=== PATIENT | female | born 1980 | race Caucasian/White ===

== ENCOUNTER 2017-09-26 07:30 | Inpatient (IN) | payer OTHER ==
[~2017-09-26] VITALS: Ht 157.5 cm; Wt 3.2 kg
[2017-10-03] MEDS ORDERED: PRENATAL FORMU1 EAC1 PO (11:58)
== END 2017-10-05 16:42 | disposition home or self-care (01) | DRG 766 ==
LOC: OB/GYN 10-03 07:00 → O/R 10-03 11:43 → OB/GYN 10-03 11:43
PROVIDERS: Obstetrics & Gynecology
PROC: 4A1HXCZ Monitoring of Products of Conception, Cardiac Rate, External Approach (ICD-10-PCS; 2017-10-03)
PROC: 4A033R1 Measurement of Arterial Saturation, Peripheral, Percutaneous Approach (ICD-10-PCS; 2017-10-03)
PROC: 0UT70ZZ Resection of Bilateral Fallopian Tubes, Open Approach (ICD-10-PCS; 2017-10-03)
PROC: 10D00Z1 Extraction of Products of Conception, Low, Open Approach (ICD-10-PCS; principal; 2017-10-03 07:00)
DX: O75.82 Onset (spontaneous) of labor after 37 completed weeks of gestation but before 39 completed weeks gestation, with delivery by (planned) cesarean section (principal); O69.81X0 Labor and delivery complicated by cord around neck, without compression, not applicable or unspecified; Z3A.39 39 weeks gestation of pregnancy; Z37.0 Single live birth; Z30.2 Encounter for sterilization; Z64.1 Problems related to multiparity